=== PATIENT | male | born 1990 | race Caucasian/White ===

== ENCOUNTER 2016-12-08 15:15 | Emergency (ER) | payer OTHER ==
[~2016-12-08] VITALS: Ht 172.7 cm; Wt 68.0 kg
--- NOTE | ~2016-12-08 | EKG ---
[place] [address] [facility] [place] [address] ELECTROCARDIOGRAM REPORT Name: WILY CALLOWAY Room [facility]: [facility] [id number] Admission: 12/08/16 Attend Phys: Discharge: 12/08/16 Date of : 86 Report #: [id number] THIS REPORT FOR: //name// [facility] ED Test Date: 2016-12-08 Test Time: 15:26:03 Pat Name: WILY CALLOWAY Department: Room: Gender: M Retail Training Manager: SHAWANDA : 1990 Requested By: Lambert Lombardi Order Number: [id number] MD: Myles Hutchison Measurements Intervals [place] Rate: 76 P: 54 AL: 157 QRS: 72 QRSD: 96 T: -33 QT: 350 QTc: 394 Interpretive Statements Sinus rhythm Probable left ventricular hypertrophy No previous ECG available for comparison Electronically Signed On 12-09-2016 8:16:10 [employer] BUILDINGS REPAIRER by Myles Hutchison [email or web address] <ELECTRONICALLY SIGNED> By: Myles Hutchison MD, [facility] 12/09/16 0816 1526 1526 Myles Hutchison MD, FACC /EPI
[2016-12-08 15:49] LABS: ABSOLUTE NEUTROPHILS 4.3 thou/uL (1.4-8.2); BASOPHILS 0.6 % (0.0-2.0); EOSINOPHILS 0.5 % (0.0-3.0); HEMOGLOBIN 14.1 gm/dL (14.0-18.0); MCH 30.6 pg (26.0-34.0); MCHC 34.5 % (28.0-37.0); MCV 88.8 fL (80.0-100.0); PLATELET COUNT 242 thou/uL (150-400); POLYS 69.9 % (36.0-66.0); RBC 4.62 mil/uL (4.50-6.00); RDW 12.8 % (10.5-14.5); WBC 6.1 thou/uL (4.0-11.0)
[2016-12-08 15:51] LABS: MANUAL DIFF NO
[2016-12-08 15:55] LABS: ANION GAP 7 mmol/L (7-16); BUN 14 mg/dL (7-18); CALCIUM 9.6 mg/dL (8.5-10.1); CHLORIDE 102 mmol/L (98-107); CO2 29 mmol/L (21-32); CREATININE 0.9 mg/dL (0.6-1.3); GLUCOSE 117 mg/dL (70-99); POTASSIUM 3.5 mmol/L (3.5-5.1); SODIUM 138 mmol/L (136-145)
[2016-12-08 16:09] LABS: NT-PRO BRAIN NAT PEPTIDE 11 pg/mL (<300); TROPONIN-I < 0.04 ng/mL (<0.04-0.07)
[2016-12-08 16:59] VITALS: BP 121/72
== END 2016-12-08 17:00 | disposition home or self-care (01) ==
LOC: ER 15:15
PROVIDERS: Nurse Practitioner
DX: R53.1 Weakness (principal)

== ENCOUNTER → 2016-12-13 | Outpatient (CLI) | payer OTHER ==
--- NOTE | ~2016-12-13 | 2DMMODE ---
[facility] [place] [address] 2 D/M-MODE ECHOCARDIOGRAM Name: WILY CALLOWAY Room #: REG CL Jose L#: [id number] Admission: 12/13/16 Attend Phys: Tariq Nicole MD Discharge: Date of : 86 Date of Service: 12/13/16 0950 Report #: [id number] THIS REPORT FOR: //name// Transthoracic Echocardiography Ordering physician: Tariq Nicole MD Referring physician: Tariq Nicole MD Wares Sorter: JEAN CLAUDE Cramer Indications/History: Abnormal ECG. BP: 114 / HR: 76bpm Height: 68in Weight: 135.7lb 78 Study data: M-mode, complete 2D, complete spectral Doppler, and color Doppler. Location: Echo laboratory. Routine. Image quality was excellent. 2D measurements Normal Normal LVID ED 42.9mm 36-57 IVS ED 6.9mm 6-11 LVID ES 28.4mm 23-40 LVPW ED 6.8mm 6-11 LA volume 18ml/m2 16-28 AoRoot diam 28.4mm 21-37 index ED LVOT diameter 22mm 18-23 Findings: Left ventricle: The cavity size was normal. Wall thickness was normal. Systolic function was normal. The estimated ejection fraction was in the range of 55% to 60%. Wall motion was normal. Right ventricle: The cavity size was normal. Systolic function was normal. Right atrium: The atrium was normal in size. Left atrium: The atrium was normal in size. Volume index: 18ml/m2 (S). Aortic valve: Structurally normal valve. Trileaflet. Doppler: There was no stenosis. No regurgitation. Peak velocity: 102.5cm/s (S). [address] [address] 2 D/M-MODE ECHOCARDIOGRAM Name: WILY CALLOWAY Room #: REG CL M.R.#: [id number] Admission: 12/13/16 Attend Phys: Tariq Nicole MD Discharge: Date of : 86 Date of Service: 12/13/16 0950 Report #: [id number] Mitral valve: Structurally normal valve. Doppler: There was no evidence for stenosis. No regurgitation. Peak E-wave velocity: 58.9cm/s. Peak A-wave velocity: 30.8cm/s. Tricuspid valve: Structurally normal valve. Doppler: There was no evidence for stenosis. No regurgitation. Pulmonic valve: Structurally normal valve. Doppler: There was no evidence for stenosis. No regurgitation. Pericardium: There was no pericardial effusion. Aorta: Aortic root: The aortic root was normal in size. Pulmonary artery: Pressure could not be reliably determined due to minimal or absent tricuspid insufficiency jet, but pulmonary hypertension was not suggested. Diastolic function: Normal diastolic function. Systemic veins: Inferior vena cava: The vessel was normal in size; the respirophasic diameter changes were in the normal range (= 50%). Conclusions 1. Left ventricle: The cavity size was normal. Wall thickness was normal. Systolic function was normal. The estimated ejection fraction was in the range of 55% to 60%. Normal diastolic function. 2. Right atrium: The atrium was normal in size. 3. Left atrium: The atrium was normal in size. 4. Aortic valve: Structurally normal valve. Trileaflet. 5. Mitral valve: Structurally normal valve. 6. Tricuspid valve: Structurally normal valve. 7. Pericardium, extracardiac: There was no pericardial effusion. <ELECTRONICALLY SIGNED> By: Tariq Nicole MD 12/13/16 1045 0950 1045 Tariq Nicole MD /lindsay
== END ==
LOC: CV 09:14
DX: R94.31 Abnormal electrocardiogram [ECG] [EKG] (principal)